=== PATIENT | female | born 1950 | race Caucasian/White ===

== ENCOUNTER 2017-12-19 20:02 | Emergency (ER) | payer MEDICARE, BC, OTHER ==
[~2017-12-19] VITALS: Ht 154.9 cm; Wt 94.4 kg
[2017-12-19 20:07] VITALS: BP 160/89; PULSE 107; RESP 20; TEMP 99.8; O2SAT 96
[2017-12-19] MEDS ORDERED: LORA1TAB12 PO ×2 (21:03)
[2017-12-19] MEDS ORDERED: LOSA25TA PO (21:03)
--- NOTE | 2017-12-19 21:32 | RADRPT ---
EXAM DATE/TIME: 12/19/2017 21:17 [place] COMPARISON: No previous studies available for comparison. INDICATIONS : Shortness of breath and cough. MEDICAL HISTORY : None. SURGICAL HISTORY : None. ENCOUNTER: Initial ACUITY: 2 days PAIN SCORE: 0/10 LOCATION: Bilateral chest FINDINGS: PA and lateral views of the chest demonstrate the lungs to be symmetrically aerated without evidence of mass, infiltrate or effusion. The cardiomediastinal contours are unremarkable. 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 There are also degenerative changes of the thoracic spine. CONCLUSION: No evidence of acute cardiopulmonary disease. Sanford Walden MD on December 19, 2017 at 21:29 Board Certified Radiologist. This report was verified electronically.
[2017-12-19] MEDS ORDERED: DEXT1TAB18 PO (21:49)
--- NOTE | 2017-12-19 21:49 | PD ---
HPI Chief Complaint: Cold / Flu Symptoms Time Seen by Provider: 21:00 Travel History International Travel<30 days: No Contact w/Intl Traveler<30days: No Traveled to known affect area: No History of Present Illness HPI Is a 67-year-old woman who presents to the emergency department complaining of being sick with cough cold symptoms for the past 1-2 months. She saw her primary doctor recently completed a prescription for amoxicillin as well some steroids. She continues to have a productive cough, some shortness of breath and chills. She had some nausea and vomiting as well as some loose stools along with this. No history of lung problems. She otherwise had been feeling generally well and healthy. about 2 months ago. History Past Medical History Narrative Medical Hypertension Anxiety Tetanus Vaccination: Unknown Influenza Vaccination: Yes Social History Alcohol Use: No Tobacco Use: No Allergies-Medications (Allergen,Severity, Reaction): Coded Allergies: No Known Allergies (Unverified , 12/19/17) Reported Meds & Prescriptions Reported Meds & Active Scripts Active Reported Lorazepam 1 Mg Tab 1 Mg PO HS PRN Lorazepam 1 Mg Tab 1 Mg PO DAILY PRN Losartan (Losartan Potassium) 25 Mg Tab 25 Mg PO HS Review of Systems Except as stated in HPI: all other systems reviewed are Neg Physical Exam Narrative GENERAL: 67-year-old woman, no acute distress. SKIN: Focused skin assessment warm/dry. HEAD: Atraumatic. Normocephalic. EYES: Pupils equal and round. No scleral icterus. No injection or drainage. ENT: No nasal bleeding or discharge. Mucous membranes pink and moist. NECK: Trachea midline. No JVD. CARDIOVASCULAR: Regular rate and rhythm. No murmur appreciated. RESPIRATORY: Frequent cough. Coarse breath sounds. Otherwise well. GASTROINTESTINAL: Abdomen soft, non-tender, nondistended. Hepatic and splenic margins not palpable. MUSCULOSKELETAL: No obvious deformities. No clubbing. No cyanosis. No edema. Data Data Last Documented VS Vital Signs Date Time Temp Pulse Resp B/P (MAP) Pulse Ox O2 Delivery O2 Flow Rate FiO2 12/19/17 20:56 18 96 Room Air 12/19/17 20:07 99.8 107 160/89 (112) Orders Orders Chest, Pa & Lat (12/19/17 ) MDM Medical Decision Making Medical Screen Exam Complete: Yes Emergency Medical Condition: Yes Interpretation(s) Chest x-ray: Chest x-ray: Negative. Differential Diagnosis URI, bronchitis, COPD, other Narrative Course Medical decision making 67-year-old woman with a month or 2 of cough cold congestion symptoms. No pneumonia. Completed some antibiotics. No fevers. Recommend supportive treatment with a mucolytic and cough suppressant. Close follow-up with her primary physician. Diagnosis Primary Impression: Cough Additional Instructions: Take cough medicine as prescribed. Follow-up with your primary doctor in the next 5-7 days. Return to the emergency department for any worsening trouble breathing, shortness of breath, or any other new or worsening symptoms. Med/Other Pt SpecificInfo: Prescription(s) given Scripts Dextromethorphan-Guaifenesin ER 12 HR (Mucinex DM Maximum Strength) 60-1,200 Mg Tab 1 TAB PO BID Y for CHEST CONGESTION AND/OR COUGH, #20 TAB 0 Refills Prov: Anand Amezcua MD 12/19/17 Disposition: 01 DISCHARGE HOME Condition: Stable Anand Amezcua MD Dec 19, 2017 21:49
[2017-12-19 22:07] VITALS: BP 135/80; TEMP 99.4
== END 2017-12-19 22:11 | disposition home or self-care (01) ==
LOC: PHED 20:02
DX: R05 Cough (principal); I10 Essential (primary) hypertension; F41.9 Anxiety disorder, unspecified
CPT/HCPCS: 71046; 99283